=== PATIENT | male | born 1980 | race Caucasian/White ===

== ENCOUNTER 2021-11-26 09:34 | Emergency (ER) | payer SELFPAY ==
[~2021-11-26] VITALS: Ht 180.3 cm; Wt 72.6 kg
[~2021-11-26 09:34] MED LIST: AMBIEN10 MG PO; ANAPROX DS550 MG PO; B-1100 MG PO; FOLIC ACID1 MG PO; HYDROXYZINE PAM50 MG PO; IBU-8800 MG PO; IBU800 M1 PO; METHOCARBAMOL500 MG PO; NATURE'S BLEND F1 MG PO; NKHM DEVI; SINEMET 25-1001 TA1 PO; TAMIFLU75 MG PO; THERA1 TAB PO; THERAGRAN1 TA2 PO; TOBREX OPHTH S2.5 ML OPH; VIBRAMYCIN100 MG PO; VICODIN 5/500 505 MG PO; VITAMIN B-11 TAB PO; ZOFRAN4 MG PO
[2021-11-26] MEDS ORDERED: VIBRAMYCIN100 MG PO (09:59)
[2021-11-26 10:10] LABS: BILIRUBIN Negative (Negative); BLOOD Negative (Negative); CLARITY Cloudy (Clear); COLOR Yellow (Yellow); GLUCOSE Negative (Negative); KETONE Negative (Negative); LEUKO ESTERASE Negative (Negative); NITRITE Negative (Negative); SPECIFIC GRAVITY 1.015 (1.001-1.030)
[2021-11-26 10:29] LABS: BACTERIA 2+; RBC 0-2 rbc/hpf (0-2); WBC 0-2 wbc/hpf (0-5)
== END 2021-11-26 10:10 | disposition home or self-care (01) ==
LOC: ED 09:34
PROVIDERS: Emergency Medicine
DX: Z20.2 Contact with and (suspected) exposure to infections with a predominantly sexual mode of transmission (principal)

== ENCOUNTER 2022-01-11 13:28 | Emergency (ER) | payer OTHER ==
[2022-01-11] MEDS ORDERED: IBUPROFEN600 MG PO (14:53)
[2022-01-11] MEDS ORDERED: SEPTDS PO (14:53)
== END 2022-01-11 15:06 | disposition home or self-care (01) ==
LOC: ED 13:28
DX: L03.116 Cellulitis of left lower limb (principal); L08.9 Local infection of the skin and subcutaneous tissue, unspecified

== ENCOUNTER 2024-06-03 08:55 | Emergency (ER) | payer MEDICAID ==
[~2024-06-03] VITALS: Wt 68.0 kg
[~2024-06-03 08:55] MED LIST changes: +IBUPROFEN600 MG PO; +SEPTDS PO
== END 2024-06-03 11:32 | disposition left against medical advice (07) ==
LOC: ED 08:55
DX: T40.601A Poisoning by unspecified narcotics, accidental (unintentional), initial encounter (principal); F12.10 Cannabis abuse, uncomplicated; F19.10 Other psychoactive substance abuse, uncomplicated; Y92.89 Other specified places as the place of occurrence of the external cause